=== PATIENT | female | born 1955 | race Caucasian/White ===

== ENCOUNTER 2018-07-26 14:57 | Outpatient (CLI) | payer MEDICARE ==
--- NOTE | 2018-07-26 17:56 | RAD ---
TWO VIEWS RIGHT WRIST: DATE: 07/26/2018. HISTORY: Followup evaluation. History of fracture on March 27. FINDINGS: There is a remote healed fracture deformity involving the distal right radius. There is loss of the normal volar tilt of the radius, and the radius is tilted dorsally. There is osteopenia present as w ell as osteoarthritis involving the carpal bones. Diffuse osteopenia is noted. There is remote frac ture involving the ulnar styloid process. IMPRESSION: 1. Remote fracture deformity of the distal right radius with loss of normal volar tilt of the radius . 2. Osteopenia and osteoarthritis. 3. Remote fracture of the ulnar styloid process. POS: [facility]
== END 2018-07-26 14:58 | disposition home or self-care (01) ==
LOC: MADRAD 14:57
PROVIDERS: ATTEND Orthopaedic Surgery
DX: M25.531 Pain in right wrist (principal); M19.031 Primary osteoarthritis, right wrist; M21.831 Other specified acquired deformities of right forearm; M85.831 Other specified disorders of bone density and structure, right forearm